=== PATIENT | female | born 1995 | race Caucasian/White ===

== ENCOUNTER 2022-03-07 14:40 | Observation (INO) ==
--- NOTE | 2022-03-07 15:13 | ED Triage Note ---
Date of Service March 07, 2022 History of Present Illness This patient was briefly evaluated while in triage. An abbreviated physical exam was performed. This patient is a 26-year-old Female with past medical history of cholangiocarcinoma who presents to the ED for evaluation of face and abdominal swelling. Symptoms started a few days ago. She has had an increase in abdominal pain. She was sent here by her oncologist. Physical Exam VITALS: Vitals are noted on the nurse's note and reviewed by myself. GENERAL: This is a 26-year-old female, in no acute distress. SKIN: The skin was without rashes. HEART: Regular rate and rhythm without murmurs gallops or rubs. LUNGS: Clear to auscultation bilaterally without wheezes, rales or rhonchi. ABDOMEN: Large midline surgical scar noted. Large mass in the epigastrium, patient reports this is a hernia and is normal for her. Abdomen somewhat distended, tenderness throughout. NEURO: Patient was alert and oriented to person place and time. Initial orders for labs and / or imaging were placed and patient was placed in the waiting area until a bed is available. Please see further documentation for the full ED course.
[2022-03-07 17:49] LABS: Basophils # (auto) 0.02 K/uL (0-0.2); Basophils % (auto) 0.4 %; Hemoglobin 7.1 g/dl (12.0-16.0); Immature Granulocytes # (auto) 0.07 K/uL (0.00-0.02); Immature Granulocytes % (auto) 1.6 %; Lymphocytes # (auto) 0.51 K/uL (1.2-3.4); Lymphocytes % (auto) 11.4 %; Mean Corpuscular Hgb Conc 32.3 g/dL (32.0-36.0); Mean Corpuscular Volume 96.1 fL (80.0-100.0); Mean Platelet Volume 10.4 fL (9.4-12.3); Monocytes # (auto) 0.22 K/uL (0.24-0.82); Monocytes % (auto) 4.9 %; Neutrophils # (auto) 3.67 K/uL (1.4-6.5); Neutrophils % (auto) 81.7 %; Platelet Count 167 K/uL (130-400); RDW Coefficient of Variation 17.7 % (11.5-14.5); RDW Standard Deviation 61.8 fL (36.4-46.3); Red Blood Count 2.29 M/uL (3.93-5.22); White Blood Count 4.49 K/ul (4.8-10.8)
[2022-03-07] MEDS ORDERED: MoRPHine SULFATE 4 MG/ML 1 ML CARP\\VIAL IV STA (17:50)
[2022-03-07] MEDS ORDERED: ONDANSETRON INJ 2 MG/ML 2 ML VIAL IV STA (17:50)
--- NOTE | 2022-03-07 17:53 | Emergency Department Note ---
Impression & Plan Anemia ADMIT ED Provider Note HPI: The patient is a 26-year-old female with history of cholangiocarcinoma, currently on chemotherapy, who presents the emergency department with a chief complaint of abdominal pain and "swelling". Patient states that yesterday she noted some facial swelling, also felt some swelling in her abdomen and lower extremities. Patient is actively on chemotherapy, she states that over the past several days she has developed some right-sided abdominal discomfort that is worse than baseline, states that she also had an episode of vomiting today. Patient states that she had some facial swelling as well as some lower extremity edema/swelling yesterday that is improved today. She was seen today by hematology/oncology and referred to the ED for further management and work-up in regards to her abdominal discomfort. On arrival the patient is mildly tachycardic at 104 but otherwise hemodynamically stable, saturating well on room air, she is afebrile on presentation. ROS: -GI: Abdominal pain -General: Generalized edema/swelling *10 point review systems was conducted and is otherwise negative unless stated above *Outpatient medications and allergy history reviewed PE: General: Alert, NAD HEENT: Normocephalic, atraumatic Eyes: Extraocular eye movement is intact, no scleral erythema Pulmonary: Clear to auscultation bilaterally, no wheezing Cardio: Regular rate and rhythm GI: Abdomen is soft, moderate distention, there is tenderness diffusely to palpation without guarding or rigidity, midline hernia noted that is soft to palpation : No suprapubic tenderness MSK: No evidence of trauma or malformation of the extremities, no edema Skin: No evidence of rash Neuro: Alert, no focal deficits Psychiatric: Cooperative air sampling and monitoring: - An order was placed for continuous cardiac monitoring - Patient was noted to be in sinus rhythm with a rate of 75 Medical Decision Making: Patient presented to the emergency department with some complaint of abdominal discomfort and generalized swelling. She states the swelling is actually improved, she was evaluated today in the outpatient setting and recommended to come to the emergency department for further care. On arrival the patient is hemodynamically stable, does complain of some generalized abdominal discomfort, she also did states she had an episode of vomiting earlier today Shortly after arrival IV was established, lab work obtained, lab work does show some worsening anemia with a hemoglobin of 7.1, also noted to be leukopenic but with normal neutrophil count. CT imaging of the abdomen pelvis was obtained that shows evidence of known hepatic metastatic disease, also stigmata of portal hypertension, no evidence of bowel obstruction or acute surgical abnormality. There is noted to be asymmetric inflammatory or infectious changes of the bilateral lung bases, patient does not have pulmonary symptoms at this time will defer antibiotic treatment to the inpatient service if required. COVID-19 testing is negative Case was discussed with on-call hematology/oncology, Dr. Camarillo, patient is thought to be stable for admission here at [facility] and she will be transfused packed red blood cells and admitted to the hospitalist serv ice for further care and hematology/oncology consultation. Patient is in agreement to this, patient and her mother state that they would not like to be transferred at this time if it is not necessary. I feel like it is reasonable to admit the patient here at this facility for this evening and to have hematology/oncology consulted. Patient is hemodynamically stable, she did sign consent for blood transfusion at the bedside with myself and the bedside RN. Packed red blood cells were ordered and the patient was admitted to the hospitalist service in stable condition following my discussion with the on-call hospitalist, Dr. Coffey. * CRITICAL CARE TIME: 45 minutes -Treatment of anemia with hemoglobin 7.1 requiring packed red blood cell transfusion, time spent at the bedside, discussion with specialty services/hematology oncology, arrangement of admission Diagnosis: 1. Anemia 2. Abdominal pain in the setting of metastatic cancer to the liver 3. Leukopenia Disposition: Admission Moisés Stanley DO Emergency Medicine Past Med/Surg History Medical History (Updated 03/07/22 @ 23:51 by Moisés Stanley DO) Anemia Anxiety Cholangiocarcinoma bioduct cancer Depression Mood disorder Port-A-Cath in place Presence of hepatic arterial infusion pump Suicidal ideations Surgical History Hx of section Hx of wisdom tooth extraction Social History (Updated 02/10/22 @ 08:07 by Ashli Stubbs RN) Smoking Status: Never smoker Hx Alcohol Use: No Hx Substance Use: No Preferred Language: Maltese Communication Ability: Effective Hearing Ability: Normal Alpine Patroller Required: No Beliefs That Will Affect Care: None marital status: Single Current Living Situation: Parent and Family Current Living Situation Comment: lives with mother and children in a mobile home current occupational status: unemployed Other Information That Helps Us Care for You: No Feels Safe at Home: Yes Safety Concerns: Feels Safe At This Time Childhood Exposure to Second-Hand Smoke: Yes (father smoked) caffeine: Yes (tea) Dental Care, Regularly: Yes Physical Activity Frequency: Does not Exercise Seatbelt Use: always Sunscreen Use: Yes Assistive Devices: Glasses Allergies Allergies Allergy/AdvReac Type Severity Reaction Status Date / Time onion Allergy Anaphylaxis Verified 03/07/22 19:55 Home Meds Home Medications Medication Instructions Recorded Confirmed ondansetron 8 mg disintegrating 8 mg PO Q8H PRN Nausea 02/27/22 03/07/22 tablet oxycodone 10 mg tablet 10 mg PO Q6H PRN Pain 02/27/22 03/07/22 pantoprazole 40 mg tablet,delayed 40 mg PO DAILY 02/27/22 03/07/22 release trazodone 100 mg tablet 100 mg PO HS PRN Sleep 02/27/22 03/07/22 epinephrine 0.3 mg/0.3 mL 0.3 mg IM Q4H PRN SEVERE ALLERGIC 03/07/22 03/07/22 injection, auto-injector (EpiPen) REACTION Results & Data (ED) Vital Signs Vital Signs - 24 hr 03/07/22 15:09 03/07/22 18:26 Temperature 36.8 C Temperature Source Skin Pulse Rate 104 H Pulse Rate [Finger] 104 H Respiratory Rate 20 20 Respiratory Effort / Characteristics Non-Labored Spontaneous Respiratory Depth Normal Respiratory Pattern Regular Blood Pressure 116/78 Blood Pressure [Right Arm] 127/85 Blood Pressure Mean 90 Blood Pressure Mean [Right Arm] 99 Pulse Oximetry 100 100 Oxygen Delivery Method Room Air Room Air Sepsis Recent Fever Within 48 Hours No Sepsis New/Unexplained Change in Mental Status N/A Sepsis Action Taken by Nursing No Action Required Laboratory Data Result diagrams: 03/07/22 17:38 03/07/22 17:38 Lab Results 03/07/22 03/07/22 03/07/22 Range/Units 17:38 17:38 17:38 WBC 4.49 L (4.8-10.8) K/ul RBC 2.29 L (3.93-5.22) M/uL Hgb 7.1 L (12.0-16.0) g/dl Hct 22.0 L (34.1-44.9) % MCV 96.1 (80.0-100.0) fL MCH 31.0 (25.0-34.0) pg MCHC 32.3 (32.0-36.0) g/dL RDW Std Deviation 61.8 H (36.4-46.3) fL RDW Coeff of Tos[place] 17.7 H (11.5-14.5) % Plt Count 167 (130-400) K/uL MPV 10.4 (9.4-12.3) fL Immature Gran % (Auto) 1.6 % Neut % (Auto) 81.7 % Lymph % (Auto) 11.4 % [place] % (Auto) 4.9 % Eos % (Auto) 0.0 % Baso % (Auto) 0.4 % Neut # (Auto) 3.67 (1.4-6.5) K/uL Lymph # (Auto) 0.51 L (1.2-3.4) K/uL [place] # (Auto) 0.22 L (0.24-0.82) K/uL Eos # (Auto) 0.00 (0-0.50) K/uL Baso # (Auto) 0.02 (0-0.2) K/uL Immature Gran # (Auto) 0.07 H (0.00-0.02) K/uL Tear Drop Cells 2+ PT (9.0-12.0) Seconds INR (0.9-1.1) Sodium 135 L (136-145) mmol/L Potassium 4.1 (3.5-5.1) mmol/L Chloride 103 (98-107) mmol/L Carbon Dioxide 25 (21-32) mmol/L Anion Gap 7 (3-11) BUN 14 (6-23) mg/dl Creatinine 0.58 L (0.6-1.2) mg/dl Est Cr Clr Drug Dosing 125.8 ml/min Est GFR ( Amer) 146.4 ml/min Est GFR (Non-Af Amer) 126.3 ml/min BUN/Creatinine Ratio 24.1 H (10-20) Glucose 91 (70-99(Fasting)) mg/dl Calcium 8.1 L (8.5-10.1) mg/dl Phosphorus 3.3 (2.5-4.9) mg/dl Magnesium 1.2 L (1.7-2.4) mg/dl Total Bilirubin 0.6 (0.2-1.0) mg/dl AST 32 (13-39) U/L ALT 21 (7-52) U/L Alkaline Phosphatase 115 H (34-104) U/L Total Protein 6.1 (6.0-8.3) gm/dl Albumin 3.1 L (3.4-5.0) gm/dl Globulin 3.0 (2.5-4.0) gm/dl Albumin/Globulin Ratio 1.0 (0.9-2) Lipase 8 L (11-82) U/L Procalcitonin (0-0.5) ng/ml Urine Color Urine Appearance (Clear) Urine pH (4.5-7.5) Ur Specific [place] (1.000-1.030) Urine Protein (Negative) Urine Glucose (UA) (Negative) Urine Ketones (Negative) Urine Blood (Negative) Urine Nitrite (Negative) Urine Bilirubin (Negative) Urine Urobilinogen (Negative) Ur Leukocyte Esterase (Negative) Urine WBC (Auto) (0-5) /hpf Urine RBC (Auto) (0-4) /hpf U Hyaline Cast (Auto) (0-5) /lpf U Epithel Cells (Auto) (0-5) /lpf Urine Bacteria (Auto) (Negative) Ur Renal Epithelial Cell Urine Mucus (None Prsent) POC Ur Test (NEG) Blood Type Antibody Screen Crossmatch 03/07/22 03/07/22 03/07/22 Range/Units 17:38 17:38 17:39 WBC (4.8-10.8) K/ul RBC (3.93-5.22) M/uL Hgb (12.0-16.0) g/dl Hct (34.1-44.9) % MCV (80.0-100.0) fL MCH (25.0-34.0) pg MCHC (32.0-36.0) g/dL RDW Std Deviation (36.4-46.3) fL RDW Coeff of Tosha (11.5-14.5) % Plt Count (130-400) K/uL MPV (9.4-12.3) fL Immature Gran % (Auto) % Neut % (Auto) % Lymph % (Auto) % [place] % (Auto) % Eos % (Auto) % Baso % (Auto) % Neut # (Auto) (1.4-6.5) K/uL Lymph # (Auto) (1.2-3.4) K/uL [place] # (Auto) (0.24-0.82) K/uL Eos # (Auto) (0-0.50) K/uL Baso # (Auto) (0-0.2) K/uL Immature Gran # (Auto) (0.00-0.02) K/uL Tear Drop Cells PT 11.8 (9.0-12.0) Seconds INR 1.1 (0.9-1.1) Sodium (136-145) mmol/L Potassium (3.5-5.1) mmol/L Chloride (98-107) mmol/L Carbon Dioxide (21-32) mmol/L Anion Gap (3-11) BUN (6-23) mg/dl Creatinine (0.6-1.2) mg/dl Est Cr Clr Drug Dosing ml/min Est GFR ( Amer) ml/min Est GFR (Non-Af Amer) ml/min BUN/Creatinine Ratio (10-20) Glucose (70-99(Fasting)) mg/dl Calcium (8.5-10.1) mg/dl Phosphorus (2.5-4.9) mg/dl Magnesium (1.7-2.4) mg/dl Total Bilirubin (0.2-1.0) mg/dl AST (13-39) U/L ALT (7-52) U/L Alkaline Phosphatase (34-104) U/L Total Protein (6.0-8.3) gm/dl Albumin (3.4-5.0) gm/dl Globulin (2.5-4.0) gm/dl Albumin/Globulin Ratio (0.9-2) Lipase (11-82) U/L Procalcitonin 0.97 H (0-0.5) ng/ml Urine Color Urine Appearance (Clear) Urine pH (4.5-7.5) Ur Specific [place] (1.000-1.030) Urine Protein (Negative) Urine Glucose (UA) (Negative) Urine Ketones (Negative) Urine Blood (Negative) Urine Nitrite (Negative) Urine Bilirubin (Negative) Urine Urobilinogen (Negative) Ur Leukocyte Esterase (Negative) Urine WBC (Auto) (0-5) /hpf Urine RBC (Auto) (0-4) /hpf U Hyaline Cast (Auto) (0-5) /lpf U Epithel Cells (Auto) (0-5) /lpf Urine Bacteria (Auto) (Negative) Ur Renal Epithelial Cell Urine Mucus (None Prsent) POC Ur Test (NEG) Blood Type A Positive Antibody Screen NEGATIVE Crossmatch See Detail 03/07/22 03/07/22 Range/Units 18:30 18:30 WBC (4.8-10.8) K/ul RBC (3.93-5.22) M/uL Hgb (12.0-16.0) g/dl Hct (34.1-44.9) % MCV (80.0-100.0) fL MCH (25.0-34.0) pg MCHC (32.0-36.0) g/dL RDW Std Deviation (36.4-46.3) fL RDW Coeff of Tosha (11.5-14.5) % Plt Count (130-400) K/uL MPV (9.4-12.3) fL Immature Gran % (Auto) % Neut % (Auto) % Lymph % (Auto) % [place] % (Auto) % Eos % (Auto) % Baso % (Auto) % Neut # (Auto) (1.4-6.5) K/uL Lymph # (Auto) (1.2-3.4) K/uL [place] # (Auto) (0.24-0.82) K/uL Eos # (Auto) (0-0.50) K/uL Baso # (Auto) (0-0.2) K/uL Immature Gran # (Auto) (0.00-0.02) K/uL Tear Drop Cells PT (9.0-12.0) Seconds INR (0.9-1.1) Sodium (136-145) mmol/L Potassium (3.5-5.1) mmol/L Chloride (98-107) mmol/L Carbon Dioxide (21-32) mmol/L Anion Gap (3-11) BUN (6-23) mg/dl Creatinine (0.6-1.2) mg/dl Est Cr Clr Drug Dosing ml/min Est GFR ( Amer) ml/min Est GFR (Non-Af Amer) ml/min BUN/Creatinine Ratio (10-20) Glucose (70-99(Fasting)) mg/dl Calcium (8.5-10.1) mg/dl Phosphorus (2.5-4.9) mg/dl Magnesium (1.7-2.4) mg/dl Total Bilirubin (0.2-1.0) mg/dl AST (13-39) U/L ALT (7-52) U/L Alkaline Phosphatase (34-104) U/L Total Protein (6.0-8.3) gm/dl Albumin (3.4-5.0) gm/dl Globulin (2.5-4.0) gm/dl Albumin/Globulin Ratio (0.9-2) Lipase (11-82) U/L Procalcitonin (0-0.5) ng/ml Urine Color Dark Yellow Urine Appearance Cloudy A (Clear) Urine pH 7.0 (4.5-7.5) Ur Specific [place] 1.025 (1.000-1.030) Urine Protein 1+ H (Negative) Urine Glucose (UA) Negative (Negative) Urine Ketones Trace H (Negative) Urine Blood Negative (Negative) Urine Nitrite Positive A (Negative) Urine Bilirubin 1+ H (Negative) Urine Urobilinogen Positive H (Negative) Ur Leukocyte Esterase 1+ H (Negative) Urine WBC (Auto) 10-30 H (0-5) /hpf Urine RBC (Auto) 0-4 (0-4) /hpf U Hyaline Cast (Auto) 0 (0-5) /lpf U Epithel Cells (Auto) >30 H (0-5) /lpf Urine Bacteria (Auto) 2+ H (Negative) Ur Renal Epithelial Cell Not Reportable Urine Mucus Present A (None Prsent) POC Ur Test NEG (NEG) Blood Type Antibody Screen Crossmatch Administered Medications Calcium Carbonate (Calcium Carbonate 1,250 Mg/5 Ml Udc) 1,250 mg PO BID NAZARIO Stop: 04/06/22 22:55 Last Admin: 03/07/22 23:46 Dose: 1,250 mg Documented By: JOJO Ceftriaxone Sodium 2,000 mg/ (Dextrose) 70 mls @ 140 mls/hr IV Q24H NAZARIO; Protocol Stop: 03/17/22 23:29 Last Admin: 03/07/22 23:44 Dose: 140 mls/hr Documented By: JOJO Discontinued Medications Diphenhydramine HCl (Diphenhydramine 50 Mg/Ml Vial) 25 mg IV NOW STA Stop: 03/07/22 19:07 Last Admin: 03/07/22 19:10 Dose: 25 mg Documented By: CONNIE Furosemide (Furosemide 40 Mg Tab) 40 mg PO NOW ONE Stop: 03/07/22 22:57 Last Admin: 03/07/22 23:46 Dose: 40 mg Documented By: JOJO Ioversol (Optiray 300 100ml) 90 ml IV ONCE ONE Stop: 03/07/22 18:37 Last Admin: 03/07/22 18:37 Dose: 90 ml Documented By: KYRA Metoclopramide HCl (Metoclopramide Hcl Inj 5 Mg/Ml 2 Ml Vial) 10 mg IV NOW STA Stop: 03/07/22 19:07 Last Admin: 03/07/22 19:12 Dose: 10 mg Documented By: CONNIE Morphine Sulfate (Morphine Sulfate 4 Mg/Ml 1 Ml Carp\\Vial) 4 mg IV NOW STA Stop: 03/07/22 17:51 Last Admin: 03/07/22 18:29 Dose: 4 mg Documented By: CRALOS Morphine Sulfate (Morphine Sulfate 4 Mg/Ml 1 Ml Carp\\Vial) Confirm Administered Dose 4 mg .ROUTE .STK-MED ONE Stop: 03/07/22 21:38 Last Admin: 03/07/22 22:23 Dose: Not Given Documented By: CONNIE Morphine Sulfate (Morphine Sulfate 10 Mg/Ml Carp/Vial) Confirm Administered Dose 10 mg .ROUTE .STK-MED ONE Stop: 03/07/22 21:39 Last Admin: 03/07/22 22:22 Dose: Not Given Documented By: CONNIE Morphine Sulfate (Morphine Sulfate 10 Mg/Ml Carp/Vial) 6 mg IM NOW STA Stop: 03/07/22 21:41 Last Admin: 03/07/22 21:42 Dose: 6 mg Documented By: CONNIE Morphine Sulfate (Morphine Sulfate 10 Mg/Ml Carp/Vial) 6 mg IM NOW STA Stop: 03/07/22 21:49 Last Admin: 03/07/22 22:22 Dose: Not Given Documented By: CONNIE Ondansetron HCl (Ondansetron Inj 2 Mg/Ml 2 Ml Vial) 4 mg IV NOW STA Stop: 03/07/22 17:51 Last Admin: 03/07/22 18:29 Dose: 4 mg Documented By: CARLOS Spironolactone (Spironolactone 12.5 Mg Tab) 12.5 mg PO NOW ONE Stop: 03/07/22 22:57 Last Admin: 03/07/22 23:46 Dose: 12.5 mg Documented By: JOJO Imaging Data Radiologist's Impression: Abdomen/Pelvis CT 03/07/22 17:[address] WITH IV CONTRAST CT DOSE: 394.75 mGy.cm HISTORY: Acute right-sided abdominal pain in a patient with reported history of cholangiocarcinoma R sided abd pain, history of cholangiocarcinoma TECHNIQUE: Multiaxial CT images of the abdomen and pelvis were performed following the IV administration of 90 cc of Optiray, A dose lowering technique was utilized adhering to the principles of ALARA. COMPARISON STUDY: None. FINDINGS: There is mild right hemidiaphragmatic elevation. Trace right pleural effusion with right basilar groundglass and linear consolidative opacities. There is no pneumatosis or pneumoperitoneum. [id number] catheter is noted within the right atrium. The spleen is enlarged measuring up to 19.6 cm in length. Unremarkable adrenal glands, and pancreas. The gallbladder is not definitively seen. The liver is enlarged. Numerous heterogeneous hypodense hepatic masses of the liver including a dominant central hepatic mass measuring over 20 cm. The main portal vein is patent. There is decreased attenuation of the left portal vein and distal branches. Unremarkable kidneys. No hydronephrosis. Decompressed urin josefa bladder. Unremarkable uterus and adnexa. Aorta and IVC are unremarkable. Mildly enlarged retroperitoneal lymph nodes measure up to 1.2 cm. Moderate abdominal pelvic ascites. There is diffuse mesenteric edema. Moderate fecal retention. No bowel obstruction or bowel wall thickening. The appendix is not clearly seen. Upper to mid abdominal wall hernia is noted with diastases of 1.9 x 10.0 cm. There is associated diastases recti. The hernia sac contains mesenteric fat with nonobstructed large bowel. Diffuse body wall edema. Battery pack within the left anterior abdominal wall is noted with single lead terminating within the jose hepatis. Unremarkable soft tissues. No acute fracture. IMPRESSION: 1. Numerous hypodense hepatic masses are present compatible with the patient's known diagnosis of hepatic malignancy. 2. Stigmata of portal venous hypertension including splenomegaly with moderate abdominal pelvic ascites. 3. Anasarca with trace right pleural effusion. 4. Decreased attenuation of the left portal vein and distal branches may be artifactual. Correlation with hepatic Doppler recommended. 5. No bowel obstruction or bowel wall thickening. 6. Moderate sized bowel containing anterior abdominal wall hernia. 7. Asymmetric right lung base opacities are suspicious for an infectious or inflammatory pneumonitis. ACT 112: Negative or not required by law. The above report was generated using voice recognition software. It may contain grammatical, syntax or spelling errors. Electronically signed by: Kam Olmstead M.D. 03/07/2022 7:05 PM Discharge Plan Visit Data Chief Complaint: Referred by Doctor Stated Complaint: SWELLING IN FACE AND STOMACH ED Provider: Moisés Stanley Discharge Problem: Anemia Patient Disposition: Admitted As Inpatient Discharge Instructions Interventions: ED Discharge Assessment Last Done: 03/07/22 22:39 : Anemia Qualifiers: Anemia type: unspecified type Qualified Code(s): D64.9 - Anemia, unspecified
[2022-03-07 18:07] LABS: Tear Drop Cells 2+
[2022-03-07 18:11] LABS: Albumin Level 3.1 gm/dl (3.4-5.0); BUN Creatinine Ratio 24.1 (10-20); Bilirubin,Total 0.6 mg/dl (0.2-1.0); Calcium 8.1 mg/dl (8.5-10.1); Creatinine Clr Calc Pharmacy 125.8 ml/min; Est GFR (African American) 146.4 ml/min; Est GFR (Non-African American) 126.3 ml/min; Potassium 4.1 mmol/L (3.5-5.1); Total Protein 6.1 gm/dl (6.0-8.3)
[2022-03-07] MEDS ORDERED: OPTIRAY 300 100mL IV ONE (18:36)
[2022-03-07 18:47] LABS: Appearance Urine Cloudy (Clear); Bacteria Urine Automated 2+ (Negative); Blood Urine Negative (Negative); Color Urine Dark Yellow; Epithelial Cell Urine Auto >30 /lpf (0-5); Glucose Urine UA Negative (Negative); Ketones Urine Trace (Negative); Leukocyte Esterase Urine 1+ (Negative); Nitrite Urine Positive (Negative); Protein Urine 1+ (Negative); RBC Urine Automated 0-4 /hpf (0-4); Specific Gravity Urine 1.025 (1.000-1.030); Urobilinogen Urine Positive (Negative)
[2022-03-07 18:52] LABS: Bilirubin Urine 1+ (Negative)
[2022-03-07 19:05] LABS: Cast Urine Automated 0 /lpf (0-5); Mucus Urine Present (None Prsent)
[2022-03-07] MEDS ORDERED: METOCLOPRAMIDE HCL INJ 5 MG/ML 2 ML VIAL IV STA (19:06)
[2022-03-07] MEDS ORDERED: diphenhydrAMINE 50 MG/ML VIAL IV STA (19:06)
--- NOTE | 2022-03-07 19:08 | CT Scan Report ---
ABDOMEN AND PELVIS CT WITH IV CONTRAST CT DOSE: 394.75 mGy.cm HISTORY: Acute right-sided abdominal pain in a patient with reported history of cholangiocarcinoma R sided abd pain, history of cholangiocarcinoma TECHNIQUE: Multiaxial CT images of the abdomen and pelvis were performed following the IV administrat ion of 90 cc of Optiray, A dose lowering technique was utilized adhering to the principles of ALARA. COMPARISON STUDY: None. FINDINGS: There is mild right hemidiaphragmatic elevation. Trace right pleural effusion with right ba silar groundglass and linear consolidative opacities. There is no pneumatosis or pneumoperitoneum. In fuse-a-Port catheter is noted within the right atrium. The spleen is enlarged measuring up to 19.6 cm in length. Unremarkable adrenal glands, and pancreas. The gallbladder is not definitively seen. The liver is enlarged. Numerous heterogeneous hypodense hepatic masses of the liver including a domin ant central hepatic mass measuring over 20 cm. The main portal vein is patent. There is decreased att enuation of the left portal vein and distal branches. Unremarkable kidneys. No hydronephrosis. Decomp ressed urinary bladder. Unremarkable uterus and adnexa. Aorta and IVC are unremarkable. Mildly enlarg ed retroperitoneal lymph nodes measure up to 1.2 cm. Moderate abdominal pelvic ascites. There is diff use mesenteric edema. Moderate fecal retention. No bowel obstruction or bowel wall thickening. The ap pendix is not clearly seen. Upper to mid abdominal wall hernia is noted with diastases of 1.9 x 10.0 cm. There is associated diastases recti. The hernia sac contains mesenteric fat with nonobstructed la rge bowel. Diffuse body wall edema. Battery pack within the left anterior abdominal wall is noted wit h single lead terminating within the jose hepatis. Unremarkable soft tissues. No acute fracture. IMPRESSION: 1. Numerous hypodense hepatic masses are present compatible with the patient's known diagnosis of hep atic malignancy. 2. Stigmata of portal venous hypertension including splenomegaly with moderate abdominal pelvic ascit es. 3. Anasarca with trace right pleural effusion. 4. Decreased attenuation of the left portal vein and distal branches may be artifactual. Correlation with hepatic Doppler recommended. 5. No bowel obstruction or bowel wall thickening. 6. Moderate sized bowel containing anterior abdominal wall hernia. 7. Asymmetric right lung base opacities are suspicious for an infectious or inflammatory pneumonitis. ACT 112: Negative or not required by law. The above report was generated using voice recognition software. It may contain grammatical, syntax o r spelling errors. Electronically signed by: Kam Olmstead M.D. 03/07/2022 7:05 PM
[2022-03-07] MEDS ORDERED: SODIUM CHLORIDE 0.9% 250 ML IV PRN ×3 (19:47→22:56)
--- NOTE | 2022-03-07 20:04 | History & Physical Report ---
Date of Service March 07, 2022 Assessment & Plan (1) Ascites: Plan: -Admit to med/surge -Ascites likely due to her current malignancy, liver mets, and portal venous hypertension -Patient will likely need a paracentesis tomorrow with fluid studies to rule out infection, will place orders now -Will start the patient on Lasix 40 mg PO now then daily starting tomorrow -Will also start her on 12.5 mg of PO Aldactone now and then daily starting tomorrow -Starting Ceftriaxone 2g q24h tonight to cover for possible UTI, pneumonia, and SBP -Morphine, 1mg IV q4h prn for pain -AM CBC, and BMP (2) Anemia: Plan: -Hgb noted to be 7.1 today, likely due to current chemotherapy -Was supposed to receive blood transfusion today in the oncology clinic -ED ordered 2 units of Irradiated PRBC's, monitor am Hgb (3) UTI (urinary tract infection): Plan: -UA concerning for possible infection, patient asymptomatic but also high risk d ue to immunocompromised state, will treat with ceftriaxone for now -FU urine culture and tailor abx as able (4) Opacity of lung on imaging study: Plan: -Noted on CT from today -Stable on RA and asymptomatic -Will add on procal and cover with ceftriaxone for now as she is immunocompromised (5) Portal venous hypertension: Plan: -Noted on CT from today -See ascites from treatment plan (6) Cholangiocarcinoma: Plan: -Currently receiving chemo and followed by [facility]ology -Unsure of the chemo she is receiving -Also has an intraabdominal chemo pump used monthly at [facility] -Oncology consult placed, they will see her tomorrow (7) Hypocalcemia: Plan: -Noted to be 8.1 today -Will start her on PO calcium carbonate BID, may need to discharge her on it (8) Anxiety: Plan: -PHYSICAL THERAPY ASSISTANT HS trazadone Plan The patient was seen with and discussed with Dr. 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 Per the ED staff who spoke to the oncology staff, the patient was scheduled to receive a blood transfusion today at the oncology clinic. Upon waking this AM the patient noticed increased swelling in her face and abdomen, along with increased abdominal discomfort. When the patient was seen in the Oncology clinic they too noticed her swelling and recommended she come to the ER to be evaluated. In the ED the patient was found to be afebrile, hemodynamically stable, and stable on room air. Hgb was noted to be 7.1, down from 8.1 as of 03/01/22. Her calcium was noted to be 8.[address] of the abdomen and pelvis showed stigmata of portal hypertension including splenomegaly with moderate abdominal and pelvic ascites, anasarca with trace right pleural effusion, no bowel obstruction, and asymmetric right lung base opacities suspicious for an infectious or inflammatory pneumonitis. The ED spoke with her Oncology team who was comfortable with her staying and receiving her transfusion, they will see her tomorrow. At the time of the exam the patient was resting comfortably in bed in no acute distress. She states that she noticed progressive abdominal swelling and left abdominal discomfort over the past 3 days. She has baseline abdominal discomfort on the upper and lower abdomen which typically runs at a 7/10 and does not radiate anywhere. Her increased left-sided abdominal discomfort is in t he same place and does not radiate as well. She states there were plans to do a paracentesis last week but they did not think that there was enough ascites at that time. The last time they used her implanted abdominal chemo pump was approximately 1 month ago. She has been eating and drinking well and denies recent fevers, chills, headache, changes in vision, hearing, taste, and smell, chest pain, SOB, cough, nausea, vomiting, diarrhea, dysuria, hematuria, and recent falls. Allergies Allergy/AdvReac Type Severity Reaction Status Date / Time onion Allergy Anaphylaxis Verified 03/07/22 19:55 Home Medications Medication Instructions Recorded Confirmed Type ondansetron 8 mg disintegrating 8 mg PO Q8H PRN Nausea 02/27/22 03/07/22 History tablet oxycodone 10 mg tablet 10 mg PO Q6H PRN Pain 02/27/22 03/07/22 History pantoprazole 40 mg tablet,delayed 40 mg PO DAILY 02/27/22 03/07/22 History release trazodone 100 mg tablet 100 mg PO HS PRN Sleep 02/27/22 03/07/22 History epinephrine 0.3 mg/0.3 mL 0.3 mg IM Q4H PRN SEVERE ALLERGIC 03/07/22 03/07/22 History injection, auto-injector (EpiPen) REACTION Past Med/Surg History Medical History (Updated 03/08/22 @ 00:14 by Rubia Coffey DO) Anemia Anxiety Cholangiocarcinoma bile duct cancer Depression Mood disorder Port-A-Cath in place Presence of hepatic arterial infusion pump Suicidal ideations Surgical History Hx of section Hx of wisdom tooth extraction Social History (Updated 02/10/22 @ 08:07 by Ashli Stubbs RN) Smoking Status: Never smoker Hx Alcohol Use: No Hx Substance Use: No Preferred Language: Malay Communication Ability: Effective Hearing Ability: Normal Welfare Worker Required: No Beliefs That Will Affect Care: None marital status: Single Current Living Situation: Parent and Family Current Living Situation Comment: lives with mother and children in a mobile home current occupational status: unemployed Other Information That Helps Us Care for You: No Feels Safe at Home: Yes Safety Concerns: Feels Safe At This Time Childhood Exposure to Second-Hand Smoke: Yes (father smoked) caffeine: Yes (tea) Dental Care, Regularly: Yes Physical Activity Frequency: Does not Exercise Seatbelt Use: always Sunscreen Use: Yes Assistive Devices: Glasses Review of Systems Review of Systems: Denies current fever, chills, headache, changes in vision, hearing, taste, and smell, chest pain, SOB, cough, abdominal pain, nausea, vomiting, diarrhea, hematemesis, melena, dysuria, hematuria, and recent falls. All systems have been reviewed and are otherwise negative. Physical Exam Physical Exam: Physical Exam: General: In no acute distress, stated age, malnourished, chronically ill- appearing HEENT: Normocephalic, atraumatic, no scleral icterus, pupils around round, symmetrical, and reactive to light, moist mucus membranes, trachea midline, no thyromegaly Chest/Pulm: No respiratory distress, symmetrical chest expansion, clear breath sounds throughout Cardiac: tachycardic rate, regular rhythm, no murmurs noted Abdomen: distended, central and left lower scars from previous procedures appear well-healed, epigastric hernia is easily reducible and not strangulated, tympanic to percussion and without pain on percussion, soft, moderate pain to palpation in the upper and lower abdomen, no signs of bruising Musculoskeletal: Symmetrical and without signs of acute trauma, upper and lower extremities with full ROM, no atrophy, spasticity, or flaccidity Extremities: Radial, dorsalis pedis, and posterior tibial pulses are intact and symmetrical, no edema noted in the BL LE's Skin: Warm, dry, no rashes , lesions, or scars noted Neuro: Alert and oriented to person, place, month, year, and president, no focal defects, CN II-XII tested and intact, finger to nose test negative, no tremors noted Psych: No acute distress, calm and cooperative during the exam Results & Data Results & Data ([facility]) Vital Signs (Past 12 Hours) Vital Signs Temp Pulse Pulse Resp BP BP Pulse Ox 03/07/22 18:26 104 H 20 127/85 100 03/07/22 15:09 36.8 C 104 H 20 116/78 100 O2 Del Method 03/07/22 18:26 Room Air 03/07/22 15:09 Room Air Laboratory Results Abnormal lab results 03/07/22 03/07/22 03/07/22 Range/Units 17:38 17:38 17:39 WBC 4.49 L (4.8-10.8) K/ul RBC 2.29 L (3.93-5.22) M/uL Hgb 7.1 L (12.0-16.0) g/dl Hct 22.0 L (34.1-44.9) % RDW Std Deviation 61.8 H (36.4-46.3) fL RDW Coeff of Tosha 17.7 H (11.5-14.5) % Lymph # (Auto) 0.51 L (1.2-3.4) K/uL [facility] # (Auto) 0.22 L (0.24-0.82) K/uL Immature Gran # (Auto) 0.07 H (0.00-0.02) K/uL Sodium 135 L (136-145) mmol/L Creatinine 0.58 L (0.6-1.2) mg/dl BUN/Creatinine Ratio 24.1 H (10-20) Calcium 8.1 L (8.5-10.1) mg/dl Alkaline Phosphatase 115 H (34-104) U/L Albumin 3.1 L (3.4-5.0) gm/dl Lipase 8 L (11-82) U/L Urine Appearance (Clear) Urine Protein (Negative) Urine Ketones (Negative) Urine Nitrite (Negative) Urine Bilirubin (Negative) Urine Urobilinogen (Negative) Ur Leukocyte Esterase (Negative) Urine WBC (Auto) (0-5) /hpf U Epithel Cells (Auto) (0-5) /lpf Urine Bacteria (Auto) (Negative) Urine Mucus (None Prsent) Crossmatch See Detail 03/07/22 Range/Units 18:30 WBC (4.8-10.8) K/ul RBC (3.93-5.22) M/uL Hgb (12.0-16.0) g/dl Hct (34.1-44.9) % RDW Std Deviation (36.4-46.3) fL RDW Coeff of Tosha (11.5-14.5) % Lymph # (Auto) (1.2-3.4) K/uL [facility] # (Auto) (0.24-0.82) K/uL Immature Gran # (Auto) (0.00-0.02) K/uL Sodium (136-145) mmol/L Creatinine (0.6-1.2) mg/dl BUN/Creatinine Ratio (10-20) Calcium (8.5-10.1) mg/dl Alkaline Phosphatase (34-104) U/L Albumin (3.4-5.0) gm/dl Lipase (11-82) U/L Urine Appearance Cloudy A (Clear) Urine Protein 1+ H (Negative) Urine Ketones Trace H (Negative) Urine Nitrite Positive A (Negative) Urine Bilirubin 1+ H (Negative) Urine Urobilinogen Positive H (Negative) Ur Leukocyte Esterase 1+ H (Negative) Urine WBC (Auto) 10-30 H (0-5) /hpf U Epithel Cells (Auto) >30 H (0-5) /lpf Urine Bacteria (Auto) 2+ H (Negative) Urine Mucus Present A (None Prsent) Crossmatch Diagnostic Findings Abdomen/Pelvis CT 03/07/22 17:[address] WITH IV CONTRAST CT DOSE: 394.75 mGy.cm HISTORY: Acute right-sided abdominal pain in a patient with reported history of cholangiocarcinoma R sided abd pain, history of cholangiocarcinoma TECHNIQUE: Multiaxial CT images of the abdomen and pelvis were performed following the IV administration of 90 cc of Optiray, A dose lowering technique was utilized adhering to the principles of ALARA. COMPARISON STUDY: None. FINDINGS: There is mild right hemidiaphragmatic elevation. Trace right pleural effusion with right basilar groundglass and linear consolidative opacities. There is no pneumatosis or pneumoperitoneum. Nydlnf-n-Ozwk catheter is noted within the right atrium. The spleen is enlarged measuring up to 19.6 cm in length. Unremarkable adrenal glands, and pancreas. The gallbladder is not definitively seen. The liver is enlarged. Numerous heterogeneous hypodense hepatic masses of the liver including a dominant central hepatic mass measuring over 20 cm. The main portal vein is patent. There is decreased attenuation of the left portal vein and distal branches. Unremarkable kidneys. No hydronephrosis. Decompressed urinary bladder. Unremarkable uterus and adnexa. Aorta and IVC are unremarkable. Mildly enlarged retroperitoneal lymph nodes measure up to 1.2 cm. Moderate abdominal pelvic ascites. There is diffuse mesenteric edema. Moderate fecal retention. No bowel obstruction or bowel wall thickening. The appendix is not clearly seen. Upper to mid abdominal wall hernia is noted with diastases of 1.9 x 10.0 cm. There is associated diastases recti. The hernia sac contains mesenteric fat with nonobstructed large bowel. Diffuse body wall edema. Battery pack within the left anterior abdominal wall is noted with single lead terminating within the jose hepatis. Unremarkable soft tissues. No acute fracture. IMPRESSION: 1. Numerous hypodense hepatic masses are present compatible with the patient's known diagnosis of hepatic malignancy. 2. Stigmata of portal venous hypertension including splenomegaly with moderate abdominal pelvic ascites. 3. Anasarca with trace right pleural effusion. 4. Decreased attenuation of the left portal vein and distal branches may be artifactual. Correlation with hepatic Doppler recommended. 5. No bowel obstruction or bowel wall thickening. 6. Moderate sized bowel containing anterior abdominal wall hernia. 7. Asymmetric right lung base opacities are suspicious for an infectious or inflammatory pneumonitis. ACT 112: Negative or not required by law. The above report was generated using voice recognition software. It may contain grammatical, syntax or spelling errors. Electronically signed by: Kam Olmstead M.D. 03/07/2022 7:05 PM Code Status & VTE Plan Code Status No EKG at the time of admission, will obtain one now VTE Prophylaxis Plan VTE Prophylaxis will be ordered: Yes Supervising Physician Co-Signing Physician Notes Patient seen and examined, chart reviewed, case discussed with ROYCE Doss and I agree with the assessment and plan as above, in brief, patient is a 26yo female with history of cholangiocarcinoma with metastatic disease to the liver (Dx in August 2021), on chemotherapy and intra-hepatic chemo as well. Patient presents with progression of abdominal distention as well as swelling in the face. Was to have transfusion completed outpatient for anemia. On exam she is afebrile, tachycardic at 104, otherwise HD stable NAD Skin warm, dry, intact, no rashes/lesions or jaundice HEENT - NC/AT, MMM, neck supple Heart - +S1/S2, regular, tachycardic Lungs - CTA anteriorly Abd - midline scar, abdominal hernia reducible LLQ pain pump in place, tenderness to palpation Extremitieswarm, well-perfused, trace edema Labs and images reviewed CT results as above Assessment/plan 26-year-old female with history of cholangiocarcinoma with metastatic disease to the liver presenting with progressive abdominal swelling as well as facial edema noted today. Found to have a moderate amount of ascites on CT. Patient is afebrile and nontoxic in appearance. We will start diuretics with Lasix 40 mg p.o. daily and Aldactone 12.5 mg p.o. daily Paracentesis ordered for tomorrow Hematology/oncology consultation appreciated Anemia with Hgb = 7.1, most likely secondary to underlying disease and chemotherapy. Has been ordered blood transfusion x2 units today Monitor H&H posttransfusion UTI. Patient denies symptoms of dysuria, frequency, urgency. UA does suggest infection. She is immunocompromised on chemotherapy Follow culture Continue ceftriaxone Remainder of plan as above PG Care Time/CCT Total # of Minutes Spent Total Time Spent with Patient: Total time spent is greater than 50% in coordination of care (as documented) at patient's floor/unit and/or counseling patient: C[place] [address] Initial Inpt Care Lvl 3 Patient Type Established Medical Decision Making Moderate Complexity Diagnoses Ascites R18.8 Anemia D64.9 UTI (urinary tract infection) N39.0 Opacity of lung on imaging study R91.8 Portal venous hypertension K76.6 Cholangiocarcinoma C22.1 Hypocalcemia E83.51 Anxiety F41.9
[2022-03-07] MEDS ORDERED: MoRPHine SULFATE 4 MG/ML 1 ML CARP\\VIAL ONE (21:37)
[2022-03-07] MEDS ORDERED: MoRPHine SULFATE 10 MG/ML CARP/VIAL ONE (21:38)
[2022-03-07] MEDS ORDERED: MoRPHine SULFATE 10 MG/ML CARP/VIAL IM STA ×2 (21:40→21:48)
[2022-03-07] MEDS ORDERED: traZODone HCL 100 MG TAB PO PRN (22:56)
[2022-03-07] MEDS ORDERED: FUROSEMIDE 40 MG TAB PO ONE (22:56)
[2022-03-07] MEDS ORDERED: MoRPHine SULFATE 2 MG/ML CARP IV PRN (22:56)
[2022-03-07] MEDS ORDERED: SPIRONOLACTONE 12.5 MG TAB PO ONE (22:56)
[2022-03-07] MEDS ORDERED: ONDANSETRON INJ 2 MG/ML 2 ML VIAL IV PRN (22:56)
[2022-03-07] MEDS ORDERED: ACETAMINOPHEN 325 MG TAB PO PRN (22:56)
[2022-03-07] MEDS ORDERED: oxyCODONE HCL IR 5 MG TAB (IMMEDIATE RELEASE) PO PRN (22:56)
[2022-03-07] MEDS ORDERED: cefTRIAXone SODIUM 2,000 MG in DEXTROSE 5% 50 ML IV SCH (23:30)
[2022-03-07 23:32] LABS: INR 1.1 (0.9-1.1); Prothrombin Time 11.8 Seconds (9.0-12.0)
[2022-03-07] MEDS: CALCIUM CARBONATE 1,250 MG/5 ML UDC PO SCH (23:46)
[2022-03-07 23:47] LABS: Magnesium 1.2 mg/dl (1.7-2.4); Phosphorus 3.3 mg/dl (2.5-4.9)
[2022-03-08] MEDS: CALCIUM CARBONATE 1,250 MG/5 ML UDC PO SCH (00:23)
[2022-03-08] MEDS: CALCIUM CARBONATE 1250MG TAB PO SCH ×2 (00:25→09:57)
[2022-03-08 08:19] LABS: Hematocrit (blood only) 24.8 % (34.1-44.9); Hemoglobin 8.3 g/dl (12.0-16.0); Mean Platelet Volume 10.5 fL (9.4-12.3); Platelet Count 124 K/uL (130-400); White Blood Count 3.91 K/ul (4.8-10.8)
[2022-03-08 08:43] LABS: Mean Corpuscular Hemoglobin 30.6 pg (25.0-34.0); Mean Corpuscular Hgb Conc 33.5 g/dL (32.0-36.0); Mean Corpuscular Volume 91.5 fL (80.0-100.0); RDW Coefficient of Variation 17.2 % (11.5-14.5); RDW Standard Deviation 55.1 fL (36.4-46.3); Red Blood Count 2.71 M/uL (3.93-5.22)
[2022-03-08 08:55] LABS: Albumin Level 2.9 gm/dl (3.4-5.0); BUN Creatinine Ratio 20.7 (10-20); Bilirubin Direct 0.4 mg/dl (0-0.2); Bilirubin,Total 1.1 mg/dl (0.2-1.0); Calcium 7.9 mg/dl (8.5-10.1); Creatinine Clr Calc Pharmacy 125.8 ml/min; Est GFR (African American) 146.4 ml/min; Est GFR (Non-African American) 126.3 ml/min; Total Protein 5.6 gm/dl (6.0-8.3)
[2022-03-08] MEDS ORDERED: FUROSEMIDE 40 MG TAB PO SCH (09:00)
[2022-03-08] MEDS ORDERED: PANTOprazole 40 MG TAB PO SCH (09:00)
[2022-03-08] MEDS ORDERED: SPIRONOLACTONE 12.5 MG TAB PO SCH (09:00)
[2022-03-08] MEDS ORDERED: METOCLOPRAMIDE HCL INJ 5 MG/ML 2 ML VIAL IV PRN (09:15)
--- NOTE | 2022-03-08 10:47 | Ultrasound Report ---
ULTRASOUND GUIDED DIAGNOSTIC AND THERAPEUTIC PARACENTESIS CLINICAL HISTORY: diagnostic and therapeutic COMPARISON STUDY: CT of the abdomen and pelvis March 07, 2022. PROCEDURE: The risks, benefits, and alternatives to the procedure were discussed with the patient inc luding the risk of bleeding, infection and injury to adjacent structures. The patient agreed to the procedure and informed written consent was obtained. Following real-time ultrasound localization, the skin of the right lower quadrant was prepped and draped. Following local anesthesia with Xylocaine, the sheath paracentesis needle was inserted and approximately 2.1 liters of straw-colored fluid was r emoved by vacuum suction. The patient tolerated the procedure well and no immediate complications were evident. IMPRESSION: Ultrasound-guided paracentesis with removal of 2.1 liters of ascites. 1 L of ascites was sent to the laboratory for analysis as ordered. ACT 112: Negative or not required by law. Electronically signed by: Alan Yanez M.D. 03/08/2022 10:45 AM
[2022-03-08] MEDS ORDERED: HEPARIN 100 UNIT/ML 5ML FLUSH FLUSH PRN (11:11)
[2022-03-08 11:23] LABS: Albumin Peritoneal Fluid 1.5 gm/dl; Total Protein Peritoneal Fluid < 3.0 gm/dl
[2022-03-08 12:41] LABS: Appearance Peritoneal Fluid Clear; Color Peritoneal Fluid Pale Yellow; Lymphocytes, Fluid 14 %; Mono,Macrophage,Mesothelial 85 %; Neutrophils, Fluid 1 %; RBC Peritoneal Fluid (A) < 2000 /uL; WBC Peritoneal Fluid (A) 348 /ul (0-300)
--- NOTE | 2022-03-08 17:50 | Electrocardiogram Report ---
Test Reason : Blood Pressure : / mmHG Vent. Rate : 099 BPM Atrial Rate : 099 BPM P-R Int : 156 ms QRS Dur : 066 ms QT Int : 336 ms P-R-T Axes : 033 -11 022 degrees QTc Int : 431 ms Poor data quality, interpretation may be adversely affected Sinus rhythm with Premature atrial complexes with Aberrant conduction possible Inferior infarct , age undetermined Abnormal ECG No previous ECGs available Confirmed by Cristian King ([id number]) on 03/08/2022 5:49:42 PM Referred By: REFERRED SELF Confirmed By:Brayden King
== END 2022-03-08 11:32 | disposition left against medical advice (07) ==
LOC: ED 14:40 → SUATTDRO 20:25 → 3W 20:25 → INTOOBSV 20:25 → 3W 22:39